=== PATIENT | male | born 1940 | race Caucasian/White ===

== ENCOUNTER → 2017-09-12 | Outpatient (CLI) | payer MEDICARE ==
--- NOTE | 2017-09-12 13:16 | RAD ---
EXAMINATION: Magnetic resonance imaging (MRI) of the lumbar spine without contrast HISTORY: Low back pain. TECHNIQUE: Multiplanar multi-weighted MRI of the lumbar spine was performed without intravenous contrast using the standard lumbar spine protocol. Contrast information: None administered. COMPARISON: None available. FINDINGS: The alignment of the lumbar spine is normal. Vertebral body heights are maintained. There is patchy fatty marrow replacement with heterogeneous appearance of the marrow signal. There are no compression fractures. The conus medullaris terminates at the level of L1. The distal spinal cord signal intensity is normal. There is disc desiccation at all levels of the lumbar spine. There is disc height loss with Modic type II endplate degenerative changes at L4-L5. 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 There is a partially profiled 3.2 cm simple appearing cyst arising from the posterior superior pole the left kidney. The aorta is normal. L1-L2: There is mild circumferential disc bulge. There is mild to moderate facet arthropathy. There is no neuroforaminal stenosis. There is no spinal canal stenosis. L2-L3: There is a circumferential disc bulge with a left far lateral disc protrusion. There is moderate facet arthropathy. There is moderate left neuroforaminal stenosis. There is no spinal canal stenosis. L3-L4: There is a circumferential disc bulge. There is moderate facet arthropathy. There is mild neuroforaminal stenosis. There is mild spinal canal stenosis. L4-L5: There is a circumferential disc bulge with superimposed small right central disc protrusion. There is moderate to advanced facet arthropathy. Left hemilaminectomy changes are suspected. There is no neuroforaminal stenosis. There is no spinal canal stenosis. L5-S1: There is minimal circumferential disc bulge. There is moderate facet arthropathy. There is no neuroforaminal stenosis. There is no spinal canal stenosis. IMPRESSION: Mild to moderate degenerative changes of the lumbar spine as described in detail above. Electronically signed by: June Hutchins MD (09/12/2017 1:14 PM) [id number]
== END | disposition home or self-care (01) ==
LOC: MRI 10:42
PROVIDERS: ATTEND Orthopaedic Surgery
DX: M48.061 Spinal stenosis, lumbar region without neurogenic claudication (principal); M47.896 Other spondylosis, lumbar region
CPT/HCPCS: 72148

== ENCOUNTER → 2017-09-20 | Outpatient (CLI) | payer MEDICARE ==
[~2017-09-20] MED LIST: ASPI-482 PO; ATOR40TA59 PO; CELE200C PO; DILT240C2 PO; HYDR-2762 PO; HYDR25TA9 PO; IOHEXOL 180 MG/ML 10 ML VIAL. ONE; LEVO137T3 PO; LISI40TA PO; MULT-658 PO; OMEG1CAP38 PO; TERA10CA3 PO; methylPREDNISolone ACETATE 40 MG/ML VIAL. ONE; methylPREDNISolone ACETATE 80 MG/ML VIAL. ONE
--- NOTE | 2017-09-21 00:40 | PAIN ---
DATE OF SERVICE: 09/20/2017 INITIAL CONSULTATION FOR PAIN CLINIC CHIEF COMPLAINT: Low back, bilateral lower extremity pain, right greater than left. HISTORY OF PRESENT ILLNESS: The patient is a 77-year-old male who presents with pain for about 2 years, increasing in the low back, bilateral lower extremities, radiating greater on the right and left into the lateral thighs as well as the posterior gluteus, posterior upper thighs and into the medial and lateral and medial lower legs on the right greater than the left, but present bilaterally down into the foot, occasionally some tingling in the toes on the right side but not the left. The patient reports it is worse with standing, walking, changing positions; it is throbbing, radiating, shooting pain, intermittent in intensity but always present. The patient reports it does not awaken him from sleep at night, feels much better lying down or sitting down, does not affect his bowel or bladder control, does affect his ability to walk, however, is marked with a significant limp favoring his right lower extremity using a cane in his left hand. The patient reports he has tried physical therapy in the past but nothing recently. He also had radiofrequency ablation of the lumbar facets medial branches approximately 8 twice a year for the past 4 years. The patient reports this did help some of his back pain but never helped the pain in his lower extremities and has recently not helping the pain in his back either over the last 2 times, this was done at [facility]. The patient has tried hydrocodone, which does help decrease the pain for about 3 hours at a time. The patient reports his disability rating from 0 to 10, 10 being the worst, is a 9 with family home responsibilities and social activity, 10 with sexual behavior and recreation, 4 with self care and 3 with life support activities. The patient did have an MRI scan of the lumbar spine dated 09/12/2017 showing [id number] degenerative change of lumbar spine as described with L4-L5, circumferential disk bulge and superimposed small right central disk protrusion with moderate advanced facet arthropathy, previous left hemilaminectomy changes as well. Mild circumferential disk bulge at L5-S1 with moderate facet arthropathy. No spinal canal stenosis. L3-L4 shows a circumferential disk bulge as well without stenosis. The patient reports no loss of motor function with significant fatigability of the lower extremities with walking and standing even more than about 5-10 minutes, especially on the right side. Once he sits down or lies down, pain is much better. PAST MEDICAL HISTORY: Significant for hypertension, quit smoking 2 years ago, hyperlipidemia, atrial fibrillation and arthritis. PAST SURGICAL HISTORY: Previous surgeries include right total knee replacement x 2, right rotator cuff repair, also hemilaminectomy of L4-L5 with a synovial cyst removed and a partial thyroidectomy in the past as well. CURRENT MEDICATIONS: Well documented and listed on the patient's chart. ALLERGIES: The patient allergic to MORPHINE, OXYCODONE, OXYCONTIN and SULFA. FAMILY HISTORY: Significant for no major medical problems or conditions that he is aware of. SOCIAL HISTORY: The patient quit smoking about 2 years ago, drinks alcohol occasionally, but 2 drinks 6 days out of 7 in a week. Denies any other illegal illicit drugs or other substances. He is and lives with his spouse, currently retired, lives locally in [place], [place]. REVIEW OF SYSTEMS: The patient's review of systems is positive for those items mentioned in history of present illness. All systems reviewed and otherwise negative. It is complete, full and well documented on the patient's chart. PHYSICAL EXAMINATION: VITAL SIGNS: Today, his blood pressure is 136/84, pulse 74, respirations 16, temperature 98.0 degrees Fahrenheit, height 6 feet 1 inch and weight is 240 pounds. GENERAL: The patient is awake, alert, oriented, appropriate and very pleasant demeanor. HEENT: Shows normocephalic and atraumatic. Extraocular movements are intact, symmetrical. Oral cavity: Mucous membranes moist and pink. Dentition is intact. NECK: Shows anterior throat supple without palpable lymphadenopathy noted. Swallow reflex is symmetrical. CHEST: Shows normal with inspection. Breath sounds clear to auscultation bilaterally. HEART: Shows S1 and S2 clear. No murmurs auscultated. ABDOMEN: Soft, nontender and nondistended. No palpable organomegaly is noted. No rebound or guarding demonstrated. BACK: The patient's back shows spine grossly in the midline, normal-appearing cervical lordotic curvature, thoracic kyphotic curvature and lumbar lordotic curvature. Lumbar paraspinous muscle shows symmetrical on inspection. Also, well-healed surgical scar is noted. No other bruises, lesions or rashes are noted on the skin of the lumbar spine. Lumbar paraspinous muscle shows symmetrical on inspection with palpation shows moderate tenderness only diffusely in the middle and lower distribution of paraspinous muscles bilaterally. The patient has good rotational motion, however, both laterally greater than 10 degrees, right and left as well as extension greater than 10 degrees, forward flexion greater than 45 degrees without pain reported in any of these maneuvers. No tenderness over the sacrum or sacroiliac regions. LOWER EXTREMITIES: Show deep tendon reflexes at 2+ in the patellar and 1+ tendo-calcaneus tendons are equal. Motor exam is strong with 5/5 dorsiflexion, extension, quadriceps and hamstring flexion symmetrical. Peripheral pulses are 1+ posterior tibial and dorsalis pedis pulses. No peripheral edema is noted. No clubbing and no cyanosis. Lower extremities are warm and dry to touch, equal in color and appearance. Straight leg raise noted to be positive on the right at about 40 degrees with decreased with knee flexion. Left side is negative. Gaenslen's and Darion's maneuvers are negative bilaterally. The patient will stand on his toes without significant difficulty or loss of balance, walks with a normal-appearing gait, appears to favor his right lower extremity and may be just very slightly and again using a cane in his left hand. IMPRESSION: 1. This is a 77-year-old male with approximately a 2-year history of increasing pain, low back, bilateral lower extremity with radicular qualities in each. 2. MRI scan of lumbar spine as noted. 3. History of arthritis. 4. Hypertension. PLAN: Options were discussed with the patient including conservative medical management, physical therapy, interventional techniques and he would like to pursue interventional techniques. We described a lumbar epidural steroid injection using description as well as anatomical models to describe the procedure. Risks were discussed including but not limited to bleeding, infection, possibility of epidural hematoma and subsequent neurological compromise, dural puncture, headaches, spinal cord and/or nerve damage, side effects of steroid medication and poor results regarding pain control. The patient understands and wished to proceed. The patient will return to clinic in approximately 2 weeks for followup, was counseled on return appointment, activity level and side effects to be aware of. DIAGNOSIS: Lumbar radiculopathy with lumbar degenerative disk disease and post-lumbar laminectomy syndrome. PROCEDURE: Lumbar epidural steroid injection, translaminar approach at the L4-L5 level using C-arm fluoroscopic guidance under sterile prep and drape using local anesthetic. MEDICATION INJECTED: A total of 120 mg Depo-Medrol plus 10 mL of preservative-free normal saline and 2 mL of Isovue for contrast. CONDITION AT DISCHARGE: Stable. The patient tolerated procedure well, had no complications. MADINA BRICE MD DR: REBECA/darshana JOB#: [id number] / [id number]
== END | disposition home or self-care (01) ==
LOC: PNCL 12:51
PROVIDERS: ATTEND Anesthesiology
DX: M51.16 Intervertebral disc disorders with radiculopathy, lumbar region (principal); M96.1 Postlaminectomy syndrome, not elsewhere classified; I10 Essential (primary) hypertension; M19.90 Unspecified osteoarthritis, unspecified site; Z88.6 Allergy status to analgesic agent; Z88.2 Allergy status to sulfonamides
CPT/HCPCS: 62323; J1030; J1040

== ENCOUNTER → 2017-10-05 | Outpatient (CLI) | payer MEDICARE ==
[~2017-10-05] MED LIST changes: -ASPI-482 PO; -ATOR40TA59 PO; -CELE200C PO; -DILT240C2 PO; -HYDR-2762 PO; -HYDR25TA9 PO; +IOHEXOL 180 MG/ML 10 ML VIAL.; -IOHEXOL 180 MG/ML 10 ML VIAL. ONE; -LEVO137T3 PO; -LISI40TA PO; -MULT-658 PO; -OMEG1CAP38 PO; -TERA10CA3 PO; +methylPREDNISolone ACETATE 40 MG/ML VIAL.; -methylPREDNISolone ACETATE 40 MG/ML VIAL. ONE; +methylPREDNISolone ACETATE 80 MG/ML VIAL.; -methylPREDNISolone ACETATE 80 MG/ML VIAL. ONE
== END | disposition home or self-care (01) ==
LOC: PNCL 10:15
DX: M51.16 Intervertebral disc disorders with radiculopathy, lumbar region (principal); M96.1 Postlaminectomy syndrome, not elsewhere classified; Z88.2 Allergy status to sulfonamides
CPT/HCPCS: 62323; J1030; J1040